=== PATIENT | male | born 1950 | race Caucasian/White ===

== ENCOUNTER → 2018-03-01 | Outpatient (CLI) | payer OTHER ==
[~2018-03-01] MED LIST: CARVEDILOL12.5 MG PO; COREG6.25 MG PO; COZAAR 50 MG TA50 M2 PO; FLEXERIL PO; GLYBURID-METFO1 EAC3 PO; NAPROSYN500 MG PO; SIMVASTATIN40 MG PO
== END ==
LOC: ULTRA 13:15
DX: E04.1 Nontoxic single thyroid nodule (principal)

== ENCOUNTER → 2018-03-05 | Outpatient (CLI) | payer OTHER ==
--- NOTE | ~2018-03-05 | PATH ---
[facility] [address] [place] [address] PATHOLOGY RPT PROCEDURE Name: RAFFY MANJARREZ Vega Room #: [facility].R.#: [id number] Admission: 03/05/18 Date of : 52 Discharge: Report #: [id number] Path Case #: [id number] [facility] Accession Number: [id number] . 01 Material submitted: . LT NECK MASS . 01 Clinician provided ICD-10: R22.1 . 01 Clinical history: . Left neck mass History bladder cancer . 02 Diagnosis: Left neck mass, needle core biopsy: - Mild chronic inflammation within reactive fibrovascular and fibroadipose connective tissue (please see comment). . (IUV:rober; 03/06/2018) QMS/03/06/2018 . 02 Comment: Examination shows fibrovascular and fibroadipose connective tissue. There is no lymph node parenchyma, or capsule present. Scattered rare histiocytes and macrophages along with lymphocytes surrounding the vessels are identified. The mature apidose tissue shows bland nuclei. There is no atypia or mitotic figures or necrosis identified. . Based on the morphology, the lesion may represent a lipoma or mature adipose tissue sampled within the neck. History of bladder cancer is noted. There are no definite tumor cells or epithelial cells identified within this needle core biopsy tissue. . A portion of this specimen was sent for flow cytometric analysis to [facility] ([id number]). Please see separate report for details on the flow cytometry findings. Dr. Suri Agee has seen safety representative slide of this case and concurs with my diagnosis. (IUV:rober; 03/06/2018) . 02 Electronically signed: . Ct Perez MD, Pathologist NPI- [id number] . 01 Gross description: . The specimen is received in formalin, labeled "Raffy Manjarrez, left neck mass" and consists of 2 delicate needle cores of quan tissue measuring 1.0 cm and [address] [address] PATHOLOGY RPT PROCEDURE Name: RAFFY MANJARREZ Room #: [facility].#: [id number] Admission: 03/05/18 Date of : 52 Discharge: Report #: [id number] Path Case #: [id number] 0.7 cm in length and less than 0.1 cm each in diameter. They are entirely submitted in A1. (SDY; 03/05/2018) SYU/SYU . 02 Pathologist provided ICD-10: R22.1, M79.9, Z85.51 . 02 CPT . 943158 Specimen Comment: A courtesy copy of this report has been sent to Specimen Comment: [phone]. Specimen Comment: Report sent to Performed at: [address], [place] [id number] MD Brooks Burnham MD Phone: [phone] Performed at: [address] [id number] Perez MD Phone: [phone]
== END | disposition home or self-care (01) ==
LOC: ULTRA 08:31
DX: M79.89 Other specified soft tissue disorders (principal); Z85.51 Personal history of malignant neoplasm of bladder; Z88.2 Allergy status to sulfonamides; Z79.899 Other long term (current) drug therapy

== ENCOUNTER → 2018-04-15 | Outpatient (CLI) | payer OTHER ==
--- NOTE | 2018-04-18 16:06 | PATH ---
[facility] [address] [place] [address] PATHOLOGY RPT PROCEDURE Name: JOSSELINERAFFY R Room #: [facility] Sonya.#: [id number] Admission: 04/15/18 Date of : 52 Discharge: Report #: [id number] Path Case #: [id number] [facility] Accession Number: [id number] . 01 Material submitted: . LEFT NECK MASS . 01 Clinical history: . Lt neck mass . 02 Diagnosis: Soft tissue, left neck mass, ultrasound-guided needle core biopsy: - POSITIVE FOR MALIGNANCY, FINDINGS CONSISTENT WITH A METASTATIC POORLY DIFFERENTIATED CARCINOMA (PLEASE SEE COMMENT). (IUV:occupational health nurse manager; 04/18/2018) MBR/04/18/2018 . 02 Comment: Examination shows collections of epithelioid cells with high nuclear to cytoplasmic ratio and occasional eosinophilic nucleoli. History of bladder cancer is noted. It is also noted that the prior biopsy, [id number], showed fibroadipose tissue without any malignancy (please refer to separate report). Immunohistochemical stains are performed based on the history on block A2. The tumor shows strong membranous reactivity to AE1/AE3 and CK7. Vimentin, CK20, CDX2, p63 and MART1 are nonreactive. Thrombomodulin is reactive and may represent a metastatic urothelial carcinoma (CK7 reactive and thrombomodulin reactive). The nonreactive immunohistochemical stains argue against a metastatic gastrointestinal primary, squamous cell carcinoma, as well as a melanoma. . Dr. Suri Agee has seen applications sales representative slides of this case and concurs with my diagnosis. Findings of this case are discussed with Dr. Gagan Gonsales at 11:30 a.m. on 04/18/18. . Portion of this specimen was sent for flow cytometric analysis ([id number]), and specimen was insufficient for flow cytometric analysis. Please see separate report for complete details. . (IUV:occupational health nurse manager; 04/18/2018) . 02 Electronically signed: . Ct Perez MD, Pathologist NPI- [id number] . 01 Gross description: . Received in formalin labeled "Raffy Manjarrez, Lt neck mass," are multiple needle core fragments of quan soft tissue ranging from 0.1 to 1.1 [place] [address] PATHOLOGY RPT PROCEDURE Name: RAFFY MANJARREZ R Room #: [facility] M.Vega.#: [id number] Admission: 04/15/18 Date of : 52 Discharge: Report #: [id number] Path Case #: [id number] length and measuring 0.1 cm each in diameter. The specimen is submitted entirely in cassettes A1 through A3. ([facility]; 04/16/2018) XDC/XDC . 02 Pathologist provided ICD-10: C79.89 . 02 CPT . 392465, V04273, R96161 Specimen Comment: A courtesy copy of this report has been sent to Specimen Comment: [phone], . Specimen Comment: Report sent to / DR MARCIAL Performed at: [address] [facility], [place], [place] [id number] MD Brooks Burnham MD Phone: [phone] Performed at: [address] [id number] [address] Perez MD Phone: [phone]
== END | disposition home or self-care (01) ==
LOC: ULTRA 14:53
DX: C77.0 Secondary and unspecified malignant neoplasm of lymph nodes of head, face and neck (principal); Z79.899 Other long term (current) drug therapy; Z88.2 Allergy status to sulfonamides

== ENCOUNTER → 2018-07-30 | Outpatient (CLI) | payer OTHER | LOC: ULTRA 09:19 | DX: M25.461 Effusion, right knee (principal); R60.0 Localized edema ==